=== PATIENT | male | born 1995 | race Caucasian/White ===

== ENCOUNTER 2020-03-13 22:56 | Emergency (ER) | payer BC, SELFPAY ==
--- NOTE | ~2020-03-13 | XR_ITS ---
EXAMINATION: XR chest 2V 03/13/2020 23:15 INDICATION: Chest pain PROCEDURE: Two-view chest COMPARISON: 04/10/2014 FINDINGS: The lungs are clear. The cardiomediastinal silhouette is within normal limits. There are no pleural effusions. There is no pneumothorax suspected. IMPRESSION: 1: NO ACUTE CARDIOPULMONARY DISEASE. Reviewed, dictated and finalized at location A. STANT SCIENTIST
[2020-03-13 23:00] VITALS: BP 158/92; PULSE 104; RESP 14; TEMP 36.8; O2SAT 99
--- NOTE | 2020-03-13 23:03 | ECG_ITS ---
Measurements Intervals [place] Rate: 98 P: 77 MO: 147 QRS: 67 QRSD: 97 T: 61 QT: 405 QTc: 518 Interpretive Statements SINUS RHYTHM POSSIBLE LEFT VENTRICULAR HYPERTROPHY BASELINE ARTIFACT- V3-V6 BORDERLINE ECG Electronically Signed On 03-14-2020 7:47:58 SAMPLE PREPARATION SUPERVISOR by Zia Navarro D.O.
--- NOTE | 2020-03-13 23:06 | ED.CHESTPAIN ---
HPI - Chest Pain General Chief Complaint: Chest Pain Stated Complaint: chest tightness Time Seen by Provider: 03/13/20 23:05 Source: patient Mode of arrival: ambulatory Limitations: no limitations History of Present Illness HPI narrative: Patient is a 24-year-old male who presents for evaluation of chest pain. Patient reports intermittent pain throughout the day on the left side of his chest described as a dull, aching pressure which is reproducible when he presses on the left chest. Pt states pain has been present greater than six hours today. He denies any recent heavy lifting. He states he has had pain like this before but when it became more severe this evening he decided to come in to be evaluated. He denies associated cough, hemoptysis or pain with a deep breath. No ripping or tearing sensation to the shoulders or flanks. No shoulder pain, jaw pain. Patient denies history of sudden cardiac in the family or abnormal heart rhythms. He reports marijuana use and e-cigarette use, denies other drug use. No fever or chills. No rhinorrhea or congestion. No recent travel or history of DVT. Related Data Allergies Allergy/AdvReac Type Severity Reaction Status Date / Time No Known Allergies Allergy Unknown Unverified 04/10/14 19:46 Review of Systems Review of Systems: Narrative: CONSTITUTIONAL: Denies fever, chills, or sweats. EYES: Denies visual changes, redness, or discharge. ENT: Denies rhinorrhea, congestion, sore throat, or otalgia. CARDIOVASCULAR: Reports left-sided chest pain without palpitations or edema RESPIRATORY: Denies cough or dyspnea. GASTROINTESTINAL: Denies abdominal pain, nausea, vomiting, or diarrhea. GENITOURINARY: Denies dysuria or hematuria. SKIN: Denies rash or itching. MUSCULOSKELETAL: Denies back pain, joint pain, or myalgia. NEUROLOGIC: Denies headache, numbness, or weakness. [facility] Past Medical History Medical History (Updated 03/14/20 @ 00:02 by Evie Diana MD) Anxiety Social History Social History (Updated 03/13/20 @ 23:37 by Evie Diana MD) Smoking status: Current some day smoker Tobacco type: e-cigarettes/vaping Alcohol intake: never Substance use: current Substance use type: marijuana Occupation/Education: student Gender identity (if verbalized by the patient): Male Exam Narrative: Exam Narrative: GENERAL: Awake, alert, conversant HEAD: Normocephalic, atraumatic. EYES: PERRLA and EOMI. ENT: Nares clear, no rhinorrhea or epistaxis. Mucous membranes moist. NECK: Supple. CHEST: No respiratory distress, breathing even and non labored, reproducible chest wall pain left chest, no crepitus, no ecchymoses HEART: Regular rate, sinus rhythm, no murmur ABDOMEN:Non distended, non tender EXTREMITIES: Normal range of motion. No edema. SKIN: Warm, dry, no rash. NEURO:No focal deficits. Alert and oriented x3 Course Vital Signs Vital signs: Vital Signs Temperature 36.8 C 03/13/20 23:00 Pulse Rate 104 H 03/13/20 23:00 Respiratory Rate 14 03/13/20 23:00 Blood Pressure 158/92 H 03/13/20 23:00 Pulse Oximetry 99 03/13/20 23:00 Temperature 36.8 C 03/13/20 23:00 Pulse Rate 104 H 03/13/20 23:00 Respiratory Rate 14 03/13/20 23:00 Blood Pressure 158/92 H 03/13/20 23:00 Pulse Oximetry 99 03/13/20 23:00 MDM - Chest Pain MDM Narrative Medical decision making narrative: Patient presented for evaluation of chest pain that has been present over 6 hours at the time of assessment. Patient's EKG and labs are without significant high risk changes. Cardiac risk factors reviewed. Patient is felt low risk for ACS and reasonable for further risk stratification testing as an outpatient. Heart score is 2. Pain was not sudden or maximal or onset without tearing or ripping quality. No other signs or symptoms to suggest aortic dissection. A low risk well's criteria is noted, PE is felt to be unlikely. Patient has reproducible chest wall pain that does s
[2020-03-13 23:18] LABS: Basophils Percent Auto 0.3 % (0.2-1.2); Eosinophils Absolute Auto 0.1 K/mm3 (0-0.3); Eosinophils Percent Auto 1.4 % (0-4.4); Hematocrit 40.6 % (42.0-52.0); Hemoglobin 14.6 g/dL (14.0-18.0); Immature Granulocyte Absolute 0.01 K/mm3 (0.00-0.031); Immature Granulocyte Percent A 0.1 % (0-0.5); Lymphocytes Absolute Auto 2.88 K/mm3 (0.9-3.2); Lymphocytes Percent Auto 29.8 % (18.3-44.2); Mean Corpuscular Hemoglobin 29.3 pg (26-34); Mean Corpuscular Volume 81.5 fl (80-100); Mean Platelet Volume 10.6 fl (7.4-10.4); Monocytes Absolute Auto 0.9 K/mm3 (0.1-0.6); Monocytes Percent Auto 9.6 % (2.6-8.5); Neutrophils Absolute Auto 5.7 K/mm3 (1.3-6.7); Neutrophils Percent Auto 58.8 % (45.5-73.1); Platelet Count Result 314 k/mm3 (150-375); Red Blood Count 4.98 M/mm3 (4.6-6.20); Red Cell Distribution Width 10.8 % (11.5-14.5); White Blood Count 9.7 K/mm3 (4.5-10.0)
[2020-03-13 23:32] LABS: Partial Thromboplastin Time 28.4 SECONDS (22.3-36.8); Prothrombin Time 14.1 Seconds (11.1-14.7)
[2020-03-13 23:36] LABS: Anion Gap 8 mmol/L (8-16); Blood Urea Nitrogen 16 mg/dL (9-20); Calcium 9.8 mg/dL (8.4-10.2); Carbon Dioxide 31 mmol/L (22-30); Chloride 102 mmol/L (98-107); Estimated CRCL calculation 101 ml/min; Estimated Glomerular Filt Rate > 60; Glucose 102 mg/dL (75-110); Potassium 3.4 mmol/L (3.4-5.0); Sodium 141 mmol/L (137-145)
[2020-03-13 23:46] LABS: Troponin I < 0.012 ng/mL (0.000-0.034)
[2020-03-14] MEDS: KETOROLAC 15 MG/ML VIAL (*BKC) IV PUSH (00:03)
[2020-03-14 00:34] VITALS: BP 136/93; PULSE 74; RESP 13; TEMP 36.6; O2SAT 98
== END 2020-03-14 00:36 | disposition home or self-care (01) ==
PROVIDERS: Emergency Medicine; Emergency Provider Emergency Medicine
DX: M94.0 Chondrocostal junction syndrome [Tietze] (principal); F17.290 Nicotine dependence, other tobacco product, uncomplicated; R94.31 Abnormal electrocardiogram [ECG] [EKG]
CPT/HCPCS: 36415; 71046; 80048; 84484; 85025; 85610; 85730; 93005; 96374; 99284; J1885

== ENCOUNTER 2021-02-12 16:13 | Emergency (ER) | payer BC, SELFPAY ==
[2021-02-12 16:23] VITALS: BP 154/81; PULSE 86; RESP 18; TEMP 37.1; O2SAT 100
--- NOTE | 2021-02-12 16:36 | ED.ARRPALP ---
HPI - Arrhythmia/Palpitations General Chief Complaint: Arrhythmia/Palpitations Stated Complaint: Heart skipping Beats Time Seen by Provider: 02/12/21 16:37 Source: patient, RN notes reviewed and old records reviewed Mode of arrival: ambulatory Limitations: no limitations History of Present Illness HPI narrative: 25-year-old male presents to the [facility] with complaints of chest pain, hearts being a beat. States has been going on and increasing over the last month. States at first he thought it was anxiety induced but he was sitting at his desk today and it just felt like his heart was racing and skipping beats. States that he can feel it in his neck at times. Denies shortness of breath, nausea, vomiting. No abdominal pain. MD complaint: heart racing , skipped beats and palpitations Related Data Home Medications Medication Instructions Recorded Confirmed No Home Medications 02/12/21 02/12/21 Allergies Allergy/AdvReac Type Severity Reaction Status Date / Time No Known Allergies Allergy Unknown Unverified 02/12/21 18:32 Review of Systems Review of Systems: All systems reviewed & are unremarkable except as noted in HPI and below Constitutional: Constitutional: Reports no additional constitutional complaints, Denies chills and Denies fever(s) Eyes: Eyes: Reports no additional eye complaints ENT: Reports system reviewed and no additional complaints, except as documented Cardiovascular: Cardiovascular: Reports as per HPI, Reports chest pain and Reports rapid heart rate Respiratory: Respiratory: Reports as per HPI, Reports dyspnea and Denies wheezing Gastrointestinal: Gastrointestinal: Reports no additional gastrointestinal complaints Musculoskeletal: Musculoskeletal: Reports no additional musculoskeletal complaints Integumentary/Breasts: Skin/Breast: Reports system reviewed and no additional complaints, except as docu Neurologic: Reports system reviewed and no additional complaints, except as documented Psychiatric: Psychiatric: Reports no additional psychiatric complaints Allergic/Immunologic: Allergic/Immunologic: Reports no additional allergic/immunologic complaints PMFSH Past Medical History Medical History Anxiety Surgical History Surgical History No significant past surgical history Social History Social History Smoking status: Current some day smoker Tobacco type: e-cigarettes/vaping Alcohol intake: never Substance use: current Substance use type: marijuana Gender identity (if verbalized by the patient): Male Comments At the time of my signature, I reviewed and agree with the nursing past medical, surgical, social, and family history. There is no relevant family history pertinent to the patient complaint. Exam Const: General: healthy appearing, no acute distress and alert Nutritional Appearance: well nourished Orientation/consciousness: patient oriented x3 Limitations: no limitations HENMT: Head: normal to inspection Ears: external ears normal Eyes: Conjunctivae: conjunctivae normal Pupils: Equal, round and reactive pupils present Neck: Neck: normal visual inspection, no lymphadenopathy and no meningeal signs Chest: Chest palpation & inspection: normal inspection of the chest and no tenderness Resp: Effort & Inspection: normal respiratory effort and no use of accessory muscles Auscultation: clear to auscultation bilaterally, no crackles, no rales, no rhonchi and no wheezes Cardio: Rate: regular rate Rhythm: regular rhythm GI: GI Palp: Yes Soft to palpation and No Tenderness to palpation present (GI) Back/Spine/Pelvis: Back: no CVA tenderness Skin: General skin exam: normal color Rashes: no rashes Wounds: no wounds Neuro: General: patient oriented x3, moves all extremities, no meningeal signs and
--- NOTE | 2021-02-12 16:39 | ECG_ITS ---
Rate 81 OR 153 QRSd 98 QT 364 QTc 423 --[place]-- P 76 QRS 65 T 62 SINUS RHYTHM VENTRICULAR PREMATURE COMPLEX RSR' IN V1 OR V2, CONSIDER RIGHT VENTRICULAR HYPERTROPHY OR RIGHT VCD BASELINE WANDER- V3-V5 BORDERLINE ECG Electronically Signed On 02-13-2021 7:54:55 CLEARANCE REPRESENTATIVE by Zia HUA
== END 2021-02-12 16:50 | disposition short-term general hospital (02) ==
PROVIDERS: Emergency Provider Nurse Practitioner
DX: R07.9 Chest pain, unspecified (principal); F17.200 Nicotine dependence, unspecified, uncomplicated
CPT/HCPCS: 93005; 99212; G0463

== ENCOUNTER 2021-02-12 17:04 | Emergency (ER) | payer BC, SELFPAY ==
--- NOTE | ~2021-02-12 | XR_ITS ---
IMPRESSION: 1: NO ACUTE CARDIOPULMONARY DISEASE. EXAMINATION: XR chest 1V portable 02/12/2021 19:08 INDICATION: Chest palpitations. PROCEDURE: 2 view chest COMPARISON: 03/13/2020 FINDINGS: The lungs are clear. The cardiomediastinal silhouette is within normal limits. There are no pleural effusions. There is no pneumothorax suspected. IMPRESSION: 1: NO ACUTE CARDIOPULMONARY DISEASE. Reviewed, dictated and finalized at location A. T DESK AUXILIARY
[2021-02-12 17:11] VITALS: BP 135/89; PULSE 81; RESP 18; TEMP 36.5; O2SAT 99
--- NOTE | 2021-02-12 17:14 | ECG_ITS ---
Rate 93 UT 153 QRSd 92 QT 352 QTc 438 --[place]-- P 78 QRS 55 T 59 SINUS RHYTHM POSSIBLE LEFT ATRIAL ENLARGEMENT RSR' IN V1 OR V2, CONSIDER RIGHT VENTRICULAR HYPERTROPHY OR RIGHT VCD BASELINE ARTIFACT- I, III, V5-V6 BORDERLINE ECG Electronically Signed On 02-12-2021 20:09:12 COATER by Zia HUA
--- NOTE | 2021-02-12 18:05 | ED.ARRPALP ---
HPI - Arrhythmia/Palpitations General Chief Complaint: Arrhythmia/Palpitations Stated Complaint: heart skipping beats Time Seen by Provider: 02/12/21 18:03 Source: patient Mode of arrival: ambulatory Limitations: no limitations History of Present Illness HPI narrative: 25-year-old male no significant past medical history complaining of palpitations for the last 4 months. Chest feels like it skips a beat he gets shortness of breath when it skips a beat. No syncope no fever no productive cough no dyspnea on exertion, no leg pain no leg swelling. No recent travel, no surgeries. Patient does take workout protein but no caffeinated products. No previous history of same. Mother states she had a history of mitral valve prolapse. Palpitations are worse at rest not as noticeable with activity or sports. Related Data Home Medications Medication Instructions Recorded Confirmed No Home Medications 02/12/21 02/12/21 Allergies Allergy/AdvReac Type Severity Reaction Status Date / Time No Known Allergies Allergy Unknown Unverified 02/12/21 18:32 Review of Systems Review of Systems: CONSTITUTIONAL: no fever, no weight loss, no confusion EYES: no vision changes, no eye pain ENT: no rhinorrhea, no sore throat, no difficulty swallowing CARDIOVASCULAR: no chest pain, no leg edema, positive for palpitations RESPIRATORY: no cough, positive for shortness of breath, no hemoptysis GASTROINTESTINAL: no abdominal pain, no nausea, no vomiting, no diarrhea GENITOURINARY: no flank pain, no dysuria, no hematuria SKIN: no rash, no jaundice MUSCULOSKELETAL: no back pain, no trauma. NEUROLOGIC: No headache, no dizziness, no focal weakness PSYCHIATRIC: No hallucinations, no suicidal ideation PMFSH Past Medical History Medical History Anxiety Surgical History Surgical History No significant past surgical history Social History Social History Smoking status: Current some day smoker Tobacco type: e-cigarettes/vaping Alcohol intake: never Substance use: current Substance use type: marijuana Gender identity (if verbalized by the patient): Male Exam Narrative: General: alert, afebrile, answering all questions appropriately Head: normocephalic, atraumatic Eyes: EOMI bilaterally, anicteric, no injection ENT: moist mucous membranes, oropharynx patent, no rhinorrhea Neck: supple, trachea midline Chest: equal chest rise bilaterally, no chest wall trauma noted Lungs: clear to auscultation bilaterally, respirations unlabored CV: regular rate, no SOBEIDA B, calf size equal bilaterally EXT: no deformity noted, moving all extremities equally Skin: warm, dry, no pallor Neuro: alert, oriented x 3; CN 2-12 grossly intact, no dysarthria Psych: affect appropriate, though content normal Course Course Emergency Course: Patient's silo erector results. Patient does have a number of PACs 21 every 10 beats. No PVCs noted no V. tach, no acute NT from phenomenon no WPW no SVTs however did show patient results and he will keep all appointments. Patient to return if increased palpitations lightheadedness syncope, chest pain shortness of breath or any concern. Vital Signs Vital signs: Vital Signs Temperature 36.5 C 02/12/21 17:11 Pulse Rate 81 02/12/21 17:11 Respiratory Rate 18 02/12/21 17:11 Blood Pressure 135/89 02/12/21 17:11 Pulse Oximetry 99 02/12/21 17:11 Temperature 36.5 C 02/12/21 17:11 Pulse Rate 76 02/12/21 18:28 Respiratory Rate 13 02/12/21 18:28 Blood Pressure 135/92 H 02/12/21 18:28 Pulse Oximetry 99 02/12/21 18:28 MDM - Arrhythmia/Palpitations Differential Diagnosis Differential diagnosis: Likely palpitations, anxiety, sinus tachycardia, artial fibrillation, artial flutter, ventricular premature beats, supraventricular tachycardia, ve
[2021-02-12 18:28] VITALS: BP 135/92; PULSE 76; RESP 13; O2SAT 99
[2021-02-12 19:52] VITALS: BP 126/70; PULSE 76; RESP 16; O2SAT 99
== END 2021-02-12 19:52 | disposition home or self-care (01) ==
PROVIDERS: Emergency Provider Emergency Medicine
DX: R00.2 Palpitations (principal)
CPT/HCPCS: 71045; 93005; 99284

== ENCOUNTER 2021-03-07 22:09 | Emergency (ER) | payer BC, SELFPAY ==
--- NOTE | ~2021-03-07 | XR_ITS ---
EXAMINATION: XR chest 2V 03/07/2021 22:51 INDICATION: Sternal chest pain PROCEDURE: 2 view chest COMPARISON: 02/12/2021 FINDINGS: The lungs are clear. The cardiomediastinal silhouette is within normal limits. There are no pleural effusions. There is no pneumothorax suspected. IMPRESSION: 1: NO ACUTE CARDIOPULMONARY DISEASE. Reviewed, dictated and finalized at location A. CULAR BIOLOGY SCIENTIST
[2021-03-07 22:12] VITALS: BP 153/86; PULSE 93; RESP 18; TEMP 36.2; O2SAT 99
--- NOTE | 2021-03-07 22:18 | ECG_ITS ---
Measurements Intervals [place] Rate: 62 P: 59 AR: 179 QRS: 43 QRSD: 102 T: 46 QT: 388 QTc: 397 Interpretive Statements SINUS RHYTHM WITH SINUS ARRHYTHMIA INCOMPLETE RIGHT BUNDLE BRANCH BLOCK ST ELEVATION IN DIFFUSE LEADS- PROBABLY EARLY REPOLARIZATION BORDERLINE ECG Electronically Signed On 03-08-2021 6:08:40 MANAGER CREDIT COLLECTIONS by Zia Navarro D.O.
--- NOTE | 2021-03-07 22:46 | ED.CHESTPAIN ---
HPI - Chest Pain General Chief Complaint: Chest Pain Stated Complaint: shoulder pain Time Seen by Provider: 03/07/21 22:23 Source: patient History of Present Illness HPI narrative: Patient presents with chest pain and shoulder pain. Patient reports he was recently seen for palpitations scheduled for follow-up with cardiology next week. Today he comes in primarily for his left shoulder pain. He reports he additionally had some sharp shooting chest pain but that has been intermittent for the past couple weeks. His left shoulder pain is new. Pain is sharp, constant, and is deep in his shoulder, no radiation, no clear aggravating or alleviating factors. He reports his symptoms started at rest while he was playing a video game and has persisted. Reports he had some mild lightheadedness earlier which is now resolved he also reported associated shortness of breath which is improving. Denies any focal numbness or weakness denies any trauma denies any increase in physical activity. Denies recent hospitalizations, major trauma, prior history of blood clots, family history of bleeding or clotting disorders. Denies any family history of sudden cardiac Related Data Home Medications Medication Instructions Recorded Confirmed No Home Medications 02/12/21 02/12/21 Allergies Allergy/AdvReac Type Severity Reaction Status Date / Time No Known Allergies Allergy Unknown Unverified 02/12/21 18:32 Review of Systems Review of Systems: CONSTITUTIONAL: Denies fever, chills, or sweats. EYES: Denies visual changes, redness, or discharge. ENT: Denies rhinorrhea, congestion, sore throat, or otalgia. CARDIOVASCULAR: Reports chest pain and palpitations RESPIRATORY: Denies cough GASTROINTESTINAL: Denies abdominal pain, nausea, vomiting, or diarrhea. GENITOURINARY: Denies dysuria or hematuria. SKIN: Denies rash or itching. MUSCULOSKELETAL: Denies back pain, joint pain, or myalgia. NEUROLOGIC: Denies headache, numbness, dizziness, or weakness. PSYCHIATRIC: Denies anxiety or depression. All systems reviewed & are unremarkable except as noted in HPI and below PMFSH Past Medical History Medical History Anxiety Surgical History Surgical History No significant past surgical history Social History Social History Smoking status: Current some day smoker Tobacco type: e-cigarettes/vaping Alcohol intake: never Substance use: current Substance use type: marijuana Gender identity (if verbalized by the patient): Male Exam Narrative: GENERAL: Well-appearing, well-nourished, and in no acute distress. HEAD: Normocephalic, atraumatic. EYES: PERRLA and EOMI. ENT: Nares clear, no rhinorrhea or epistaxis. Mucous membranes moist. NECK: Supple. No masses. No JVD CHEST: Clear to auscultation. No respiratory distress. No wheezes rales or rhonchi HEART: Regular rate and rhythm. No murmur heard. Normal peripheral pulses. ABDOMEN: Soft, nontender, nondistended, normal active bowel sounds. EXTREMITIES: Normal range of motion. No edema. SKIN: Warm, dry, no rash. NEURO: No focal deficits. Alert and oriented x3. PSYCH: Normal mood and affect. Course Reevaluation(s) Reevaluation #1: Patient is resting comfortably feels somewhat improved after fluids and aspirin. Results and plan reviewed with patient. Patient is comfortable with the outpatient plan. Date: 03/08/21 Time: 00:08 Vital Signs Vital signs: Vital Signs Temperature 36.2 C L 03/07/21 22:12 Pulse Rate 93 03/07/21 22:12 Respiratory Rate 18 03/07/21 22:12 Blood Pressure 153/86 H 03/07/21 22:12 Pulse Oximetry 99 03/07/21 22:12 Temperature 36.6 C 03/07/21 22:52 Pulse Rate 68 03/08/21 00:23 Respiratory Rate 15 03/08/21 00:23 Blood Pressure 117/69 03/08/21 00:23 Pulse Oximetry 99
[2021-03-07 22:52] VITALS: BP 133/71; PULSE 68; RESP 13; TEMP 36.6; O2SAT 97
[2021-03-07 23:06] LABS: Basophils Percent Auto 0.5 % (0.2-1.2); Eosinophils Absolute Auto 0.1 K/mm3 (0-0.3); Eosinophils Percent Auto 1.4 % (0-4.4); Hematocrit 40.5 % (42.0-52.0); Hemoglobin 14.9 g/dL (14.0-18.0); Immature Granulocyte Absolute 0.02 K/mm3 (0.00-0.031); Immature Granulocyte Percent A 0.2 % (0-0.5); Lymphocytes Absolute Auto 3.19 K/mm3 (0.9-3.2); Lymphocytes Percent Auto 36.8 % (18.3-44.2); Mean Corpuscular HGB Conc 36.8 g/dl (32-36); Mean Corpuscular Hemoglobin 29.5 pg (26-34); Mean Corpuscular Volume 80.2 fl (80-100); Mean Platelet Volume 10.7 fl (7.4-10.4); Monocytes Absolute Auto 0.6 K/mm3 (0.1-0.6); Neutrophils Absolute Auto 4.7 K/mm3 (1.3-6.7); Neutrophils Percent Auto 54.1 % (45.5-73.1); Platelet Count Result 290 k/mm3 (150-375); Red Blood Count 5.05 M/mm3 (4.6-6.20); Red Cell Distribution Width 11.2 % (11.5-14.5); White Blood Count 8.7 K/mm3 (4.5-10.0)
[2021-03-07 23:16] LABS: Alanine Aminotransferase 18 U/L (4-50); Albumin Level 5.1 g/dL (3.5-5.1); Alkaline Phosphatase 91 U/L (38-126); Anion Gap 11 mmol/L (8-16); Aspartate Amino Transferase 22 U/L (17-59); Bilirubin,Total 0.7 mg/dL (0.2-1.3); Blood Urea Nitrogen 17 mg/dL (9-20); Calcium 9.9 mg/dL (8.4-10.2); Carbon Dioxide 20 mmol/L (22-30); Chloride 105 mmol/L (98-107); Estimated CRCL calculation 132 ml/min; Estimated Glomerular Filt Rate > 60; Glucose 131 mg/dL (65-110); Lipase 72 U/L (23-300); Potassium 3.3 mmol/L (3.4-5.0); Sodium 136 mmol/L (137-145)
[2021-03-07 23:18] LABS: Partial Thromboplastin Time 29.7 SECONDS (22.3-36.8)
[2021-03-07 23:27] LABS: Troponin I < 0.012 ng/mL (0.000-0.034)
[2021-03-07 23:34] VITALS: PULSE 59
[2021-03-07] MEDS: SODIUM CHLORIDE 0.9% IV 1,000 ML 999 ML IV CONT (23:41)
[2021-03-08 00:23] VITALS: BP 117/69; PULSE 68; RESP 15; O2SAT 99
== END 2021-03-08 00:38 | disposition home or self-care (01) ==
PROVIDERS: Family Medicine; Emergency Provider Emergency Medicine
DX: R07.89 Other chest pain (principal); M25.512 Pain in left shoulder; R06.00 Dyspnea, unspecified; F41.9 Anxiety disorder, unspecified; Z72.0 Tobacco use
CPT/HCPCS: 36415; 71046; 80053; 83690; 84484; 85025; 85610; 85730; 93005; 96360; 99284; J7030